=== PATIENT | female | born 2000 | race Caucasian/White ===

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

== ENCOUNTER 2021-06-28 08:00 | Outpatient (CLI) | payer OTHER | END 2021-06-28 08:30 | disposition home or self-care (01) | LOC: PPH VACUNA 08:00 | PROVIDERS: ATTEND Emergency Medicine Pediatric Emergency Medicine | DX: Z23 Encounter for immunization (principal) ==

== ENCOUNTER 2021-08-28 09:27 | Outpatient (CLI) | payer OTHER | END 2021-08-29 15:12 | disposition home or self-care (01) | LOC: RAD 09:27 | DX: M25.572 Pain in left ankle and joints of left foot (principal) ==